=== PATIENT | male | born 1970 | race Two or more races ===

== ENCOUNTER 2024-09-28 05:12 | Inpatient (IN) | payer MEDICAID, OTHER ==
[2024-09-28] VITALS (7 sets, daily range): BP systolic 115; BP diastolic 65; PULSE 84–103; RESP 12–32; O2SAT 93–98
[~2024-09-28] VITALS: Ht 144.8 cm; Wt 59.0 kg
--- NOTE | 2024-09-28 06:46 | ECG ---
[facility] Test Date: 2024-09-28 Test Time: 06:45:06 Pat Name: GAUDENCIO MOSS Department: ED Room: 0205 Gender: M [employer] Head: ARIA : 1970 Requested By: CHELA MARIN Order Number: [id number] Reading MD: Jewel Leong Measurements Intervals [place] Rate: 98 P: 74 PA: 130 QRS: 30 QRSD: 88 T: 55 QT: 348 QTc: 445 Interpretive Statements Sinus rhythm Electronically Signed On 09-30-2024 21:16:55 PDT by Jewel Leong Please click the below link to view image of tracing.
--- NOTE | 2024-09-28 06:54 | ED.PDOC ---
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 Caregiver reports noticing respiratory distress with discoloration to patient's fingertips and heavy amount of phlegm build up but struggles to cough out. Patient resides in [place], [place] at [place] and has been dx with pulmonary issues since childhood in [place] alongside PNA. Patient is not on any home oxygen or has history of asthma or COPD. Upon ED arrival, patient;s SPO2 read in the 80's RA. Caregiver states last PNA dx was about a year ago and is given Ciprofloxacin to treat infection. Caregiver also mentions patient saturates in the 85-90s normally. No other complaints reported. Chief Complaint: Shortness of Breath Time Seen by MD: 06:18 Reviewed notes: Nurses Notes, Medications, Allergies Information Source: Legal Guardian Mode of Arrival: Ambulatory Severity: Moderate Timing: Hours Duration: Since onset History of: None Modifying Factors: Nothing Associated Signs and Symptoms: Cough If cough with SOB: Productive Past Medical History Past Medical History (Other): PNA Surgical History: Appendectomy Family History Family History: Reviewed,noncontributory to illness Social History Smoker: Non-Smoker Alcohol: Denies ETOH Use Drugs: Denies Drug Use Lives In: Home Constitutional: denies: chills, diaphoresis, fatigue, fever, malaise, sweats, weakness, others EENTM: denies: blurred vision, double vision, ear bleeding, ear discharge, ear drainage, ear pain, ear ringing, eye pain, eye redness, hearing loss, mouth pain, mouth swelling, nasal discharge, nose bleeding, nose congestion, nose pain, photophobia, tearing, throat pain, throat swelling, voice changes, others Respiratory: reports: cough, SOB at rest, shortness of breath, SOB with excertion; denies: hemoptysis, orthopnea, stridor, wheezing, others Cardiovascular: denies: chest pain, dizzy spells, diaphoresis, Dyspnea on exertion, edema, irregular heart beat, left arm pain, lightheadedness, palpitations, PND, syncope, others Gastrointestinal: denies: abdomen distended, abdominal pain, blood streaked bowels, constipated, diarrhea, dysphagia, difficulty swallowing, hematemesis, melena, nausea, poor appetite, poor fluid intake, rectal bleeding, rectal pain, vomiting, others Genitourinary: denies: burning, dysuria, flank pain, frequency, hematuria, incontinence, penile discharge, penile sore, pain, testicle pain, testicle swelling, urgency, others Neurological: denies: dizziness, fainting, headache, left sided numbness, left sided weakness, numbness, paresthesia, pre-existing deficit, right sided numbness, right sided weakness, seizure, speech problems, tingling, tremors, weakness, others Musculoskeletal: denies: back pain, gout, joint pain, joint swelling, muscle pain, muscle stiffness, neck pain, others Integumetry: reports: change in color; denies: bruises, change in hair/nails, dryness, laceration, lesions, lumps, rash, wounds, others Allergic/Immunocompromised: denies: Difficulty Healing, Frequent Infections, Hives, Itching, others Hematologic/Lymphatic: denies: anemia, blood clots, easy bleeding, easy bruising, swollen glands, others Endocrine: denies: excessive hunger, excessive sweating, excessive thirst, excessive urination, flushing, intolerance to cold, intolerance to heat, unexplained weight gain, unexplained weight loss, others Psychiatric: denies: anxiety, bipolar disorder, depression, hopeless, panic disorder, schizophrenia, sleepless, suicidal, others All Other Systems: Reviewed and Negative Physical Exam General Appearance: No Apparent Distress, Normal HEENT: Normal ENT Inspection Neck: Normal Inspection Respiratory: Crackles (bilaterally ), Other (tachypneic) Cardiovascular: No Edema, No JVD, No Murmur, No Gallop, Tachycardia Breast Exam: Deferred Gastrointestinal: Non Tender, Normal Bowel Sounds Genitalia: Deferred Pelvic: Deferred Rectal: Deferred Extremities: Normal inspection Neurologic: Alert, washer hand II-XII nml as Tested, No Motor Deficits, Normal Affect, Normal Mood, No Sensory Deficits Cerebellar Function: Unable to Test Reflexes: NOT DONE Skin: Normal Color Lymphatic: NOT DONE Was a procedure done? Was a procedure done?: No Differential Dx Differential Diagnosis: Bronchitis, COPD, Pneumonia, Respiratory Distress, URI X-Ray, Labs, Meds, VS Vital Signs Date Time Temp Pulse Resp B/P (MAP) Pulse Ox O2 Delivery O2 Flow Rate FiO2 09/28/24 06:45 98 09/28/24 06:27 102 23 98 Non-Rebreather 15 N/A 09/28/24 06:25 98.8 102 23 102/52 (69) 98 98.8 09/28/24 05:30 99.2 104 20 100/49 (66) 85 99.2 Lab Test 09/28/24 07:41 09/28/24 06:33 Range/Units Troponin I High Sensitivity 9 9 </=54 ng/L White Blood Count 7.5 4.4-10.8 10^3/uL Red Blood Count 5.37 4.5-5.90 10^6/uL Hemoglobin 16.9 13.5-17.5 g/dL Hematocrit 50.1 41.0-53.0 % Mean Corpuscular Volume 93.3 80.0-100.0 fL Mean Corpuscular Hemoglobin 31.5 28.0-32.0 pg Mean Corpuscular Hemoglobin Concent 33.8 32.0-36.0 g/dL Red Cell Distribution Width 16.4 H 11.8-14.3 % Platelet Count 118 L 140-450 10^3/uL Mean Platelet Volume 8.4 6.9-10.8 fL Neutrophils (%) (Auto) 89.3 H 37.0-80.0 % Lymphocytes (%) (Auto) 5.2 L 10.0-50.0 % Monocytes (%) (Auto) 5.3 0.0-12.0 % Eosinophils (%) (Auto) 0.1 0.0-7.0 % Basophils (%) (Auto) 0.1 0.0-2.0 % Neutrophils # (Auto) 6.7 1.6-8.6 10 ^3/uL Lymphocytes # (Auto) 0.4 0.4-5.4 10 ^3/uL Monocytes # (Auto) 0.4 0-1.3 10 ^3/uL Eosinophils # (Auto) 0 0-0.8 10 ^3/uL Basophils # (Auto) 0 0-0.2 10 ^3/uL Nucleated Red Blood Cells 0.1 % Sodium Level 144 136-145 mmol/L Potassium Level 3.3 L 3.5-5.1 mmol/L Chloride Level 104 98-107 mmol/L Carbon Dioxide Level 27 20-31 mmol/L Anion Gap 13 5-15 Blood Urea Nitrogen 9 9-23 mg/dL Creatinine 1.01 0.700-1.30 mg/dL Glomerular Filtration Rate Calc 88 >90 mL/min BUN/Creatinine Ratio 8.9 L 10.0-20.0 Serum Glucose 137 H 74-106 mg/dL Lactic Acid Level 5.5 *H 0.4-2.0 mmol/L Calcium Level 9.4 8.7-10.4 mg/dL Current Medications Medications (Trade) Dose Ordered Sig/Shailesh Route Start Time Stop Time Status Last Admin Sodium Chloride 1,000 ml @ 1,000 mls/hr Q1H ONCE IV 09/28/24 07:30 09/28/24 08:29 DC 09/28/24 08:15 Cefepime HCl 50 ml @ 50 mls/hr ONCE ONCE IV 09/28/24 07:30 09/28/24 08:29 DC 09/28/24 08:17 EXAM: XR Chest, 1 View CLINICAL INDICATION: Pain TECHNIQUE: Frontal view of the chest. COMPARISON: No relevant prior studies available. FINDINGS: LUNGS AND PLEURAL SPACES: See below. HEART: Cardiomegaly with mild congestion. MEDIASTINUM: Unremarkable. Normal mediastinal contour. BONES/JOINTS: Unremarkable. No acute fracture. IMPRESSION: Cardiomegaly with mild congestion. Time of 1ST Reevaluation: 06:23 Reevaluation 1ST: Unchanged Patient Education/Counseling: Other Family Education/Counseling: Diagnosis, Treatment, Prognosis SEPSIS Sepsis Screen Orders/Vitals/Labs Physician Orders Urinalysis (09/28/24 06:21) Chest Portable (09/28/24 06:21) Blood Culture (09/28/24 06:21) Troponin-I Hs (09/28/24 09:21) Sepsis Reassessment After Flui (09/28/24 07:36) Initiate Sepsis Protocol (09/28/24 ) Sepsis Initial Assessment ONCE (09/28/24 07:36) Vital Signs Date Time Temp Pulse Resp B/P (MAP) Pulse Ox O2 Delivery O2 Flow Rate FiO2 09/28/24 06:45 98 09/28/24 06:27 102 23 98 Non-Rebreather 15 N/A 09/28/24 06:25 98.8 102 23 102/52 (69) 98 98.8 09/28/24 05:30 99.2 104 20 100/49 (66) 85 99.2 Laboratory Tests Test 09/28/24 06:33 Lactic Acid Level 5.5 mmol/L (0.4-2.0) *H White Blood Count 7.5 10^3/uL (4.4-10.8) Medications Medications Dose Ordered Sig/Shailesh Route Start Time Stop Time Status Last Admin Dose Admin Cefepime HCl 50 ml @ 50 mls/hr ONCE ONCE IV 09/28/24 07:30 09/28/24 08:29 DC 09/28/24 08:17 Sodium Chloride 1,000 ml @ 1,000 mls/hr Q1H ONCE IV 09/28/24 07:30 09/28/24 08:29 DC 09/28/24 08:15 Departure 1 Departure Time of Disposition: 08:46 (Patient with a worsening shortness of breath requiring oxygen. We will admit patient for further workup and expert consultation) Impression: Primary Impression: Acute hypoxic respiratory failure Additional Impression: Shortness of breath Disposition: ADMITTED INPATIENT Admit to: Med Surg Condition: Guarded Critical Care Note Critical Care Time?: Yes Critical care comment: Shortness of breath Authorized and Performed by: Chela Lugo MD Total critical care time: Approximately 43 minutes Due to a high probability of clinically significant, life threatening deterioration, the patient required my highest level of preparedness to inte rvene emergently and I personally spent this critical care time directly and personally managing the patient. This critical care time included obtaining a history; examining the patient; pulse oximetry; ordering and review of studies; arranging urgent treatment with development of a management plan; evaluation of patient's response to treatment; frequent reassessment; and, discussions with other providers. This critical care time was performed to assess and manage the high probability of imminent, life-threatening deterioration that could result in multi-organ failure. It was exclusive of separately billable procedures and treating other patients and teaching time. Please see my other sections and the rest of the note for further information on patient assessment and treatment. Stability Stability form required: No Heart Score Heart Score: Heart Score Response (Comments) Value History N/A 0 EKG N/A 0 Age N/A 0 Risk Factors N/A 0 Troponin N/A 0 Total 0 I personally scribed for CHELA LUGO MD ([email or web address]) on 09/28/24 at 06:54. El ectronically submitted by Padmini Ham ([facility]). I personally scribed for CHELA LUGO MD ([email or web address]) on 09/28/24 at 08:08. Elec tronically submitted by Padmini Ham ([facility]). CHELA LUGO MD Sep 28, 2024 06:54
[2024-09-28 06:56] LABS: Basophils # (auto) 0 10 ^3/uL (0-0.2); Basophils % (auto) 0.1 % (0.0-2.0); Eosinophils # (auto) 0 10 ^3/uL (0-0.8); Eosinophils % (auto) 0.1 % (0.0-7.0); Hematocrit 50.1 % (41.0-53.0); Hemoglobin 16.9 g/dL (13.5-17.5); Lymphocytes # (auto) 0.4 10 ^3/uL (0.4-5.4); Lymphocytes % (auto) 5.2 % (10.0-50.0); Mean Corpuscular Hemoglobin 31.5 pg (28.0-32.0); Mean Corpuscular Hgb Conc. 33.8 g/dL (32.0-36.0); Mean Corpuscular Volume 93.3 fL (80.0-100.0); Monocytes # (auto) 0.4 10 ^3/uL (0-1.3); Monocytes % (auto) 5.3 % (0.0-12.0); Neutrophils # (auto) 6.7 10 ^3/uL (1.6-8.6); Neutrophils % (auto) 89.3 % (37.0-80.0); Nucleated Red Blood Cells % 0.1 %; Platelet Count (auto) 118 10^3/uL (140-450); Red Blood Cells 5.37 10^6/uL (4.5-5.90); Red Cell Distribution Width 16.4 % (11.8-14.3); White Blood Cell 7.5 10^3/uL (4.4-10.8)
[2024-09-28 07:06] LABS: Anion Gap 13 (5-15); Carbon Dioxide 27 mmol/L (20-31); Chloride 104 mmol/L (98-107); Sodium 144 mmol/L (136-145)
[2024-09-28 07:07] LABS: Calcium 9.4 mg/dL (8.7-10.4)
[2024-09-28 07:12] LABS: BUN/Creatinine Ratio 8.9 (10.0-20.0); Blood Urea Nitrogen 9 mg/dL (9-23)
[2024-09-28 07:13] LABS: Glucose 137 mg/dL (74-106); Potassium 3.3 mmol/L (3.5-5.1)
[2024-09-28 07:19] LABS: Lactic Acid w/Reflex 5.5 mmol/L (0.4-2.0)
--- NOTE | 2024-09-28 08:04 | DVH ---
EXAM: XR Chest, 1 View CLINICAL INDICATION: Pain TECHNIQUE: Frontal view of the chest. COMPARISON: No relevant prior studies available. FINDINGS: LUNGS AND PLEURAL SPACES: See below. HEART: Cardiomegaly with mild congestion. MEDIASTINUM: Unremarkable. Normal mediastinal contour. BONES/JOINTS: Unremarkable. No acute fracture. IMPRESSION: Cardiomegaly with mild congestion.
[2024-09-28] MEDS: SODIUM CHLORIDE 0.9% 1,000 ML IV ONE ×3 (08:15→13:08)
[2024-09-28] MEDS: CEFEPIME 2GM/50ML NS 50 ML IV ONE (08:17)
[2024-09-28] MEDS: VANCOMYCIN 1GM/200ML PM 200 ML IV ONE (10:00)
[2024-09-28] MEDS ORDERED: ONDANSETRON HCL 4 MG/2 ML VIAL IV PRN (10:30)
--- NOTE | 2024-09-28 10:49 | DVHHP2 ---
History of Present Illness Reason for Visit: Shortness of breath History of Present Illness Smith Watson is a 54-year-old male with a past medical history of Down's syndrome and non-verbal at baseline, who was brought to the hospital for shortness of breath. Per his sister, he lives in [place], he is only visiting right now. At baseline is oxygenation is around 85%, and he does not use home oxygen. He does not have any chronic conditions that require daily medications. He has had pneumonia in the past. She states she brought him in because he was having increased work of breathing, and cough with sputum. She states she can hear he has a wet cough, but he has difficulty coughing it up. In the ER kennedy you was placed on a non rebreather mask at 15L. O2 saturations were 96%, wean down oxygen as tolerated. 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, Down's syndrome ) Past Surgical History: Appendectomy Smoke: No ALCOHOL: none Drugs: None Lives: with Family Domestic Violence: Neg Review of Systems Constitutional: No: Fever, Chills, Sweats, Weakness, Malaise, Other Eyes: No: Pain, Vision change, Conjunctivae inflammation, Eyelid inflammation, Other, Redness ENT: No: Ear pain, Ear discharge, Nose pain, Nose discharge, Nose congestion, Mouth pain, Mouth swelling, Throat pain, Throat swelling, Other Respiratory: Cough, Shortness of breath, SOB with excertion, Wheezing, Sputum; No: Dry, Hemoptysis, Pleuritic Pain, Wheezing, Other Cardiovascular: No: Chest Pain, Palpitations, Orthopnea, Paroxysmal Noc. Dyspnea, Edema, Lt Headedness, Other Gastrointestinal: No: Nausea, Vomiting, Abdominal Pain, Diarrhea, Constipation, Melena, Hematochezia, Other Genitourinary: No Dysuria, No Frequency, No Incontinence, No Hematuria, No Retention, No Other Musculoskeletal: No: other, neck pain, shoulder pain, arm pain, back pain, hand pain, leg pain, foot pain Skin: No: Rash, Lesions, Jaundice, Bruising, Other Neurological: No: Weakness, Numbness, Incoordination, Change in speech, Confusi on, Seizures, Other Allergies: Coded Allergies: NO KNOWN ALLERGIES (Unverified , 09/28/24) Exam Vital Signs Vital Signs Date Time Temp Pulse Resp B/P (MAP) Pulse Ox O2 Delivery O2 Flow Rate FiO2 09/28/24 09:04 89 09/28/24 08:00 12 95 Non-Rebreather 15 N/A 09/28/24 08:00 98.3 101/78 (86) 98.3 General Appearance: Alert, Cooperative, moderate distress HEENT: Atraumatic, PERRLA Respiratory: Other (bilateral wheezing and rales) Cardiovascular: Regular rate, Normal S1, Normal S2 Abdominal: Normal bowel sounds, Soft, No tenderness Extremities: No clubbing, No cyanosis, No edema, Normal pulses Skin: No rashes, No breakdown, No significant lesion Neuro: Normal gait, Normal speech, Strength at 5/5 X4 ext Psych/Mental Status: Other (non verbal at baseline) Labs/Xrays Labs Test 09/28/24 09:27 09/28/24 08:45 09/28/24 06:33 Range/Units Troponin I High Sensitivity 7 </=54 ng/L Lactic Acid Level 2.9 *H 0.4-2.0 mmol/L White Blood Count 7.5 4.4-10.8 10^3/uL Red Blood Count 5.37 4.5-5.90 10^6/uL Hemoglobin 16.9 13.5-17.5 g/dL Hematocrit 50.1 41.0-53.0 % Mean Corpuscular Volume 93.3 80.0-100.0 fL Mean Corpuscular Hemoglobin 31.5 28.0-32.0 pg Mean Corpuscular Hemoglobin Concent 33.8 32.0-36.0 g/dL Red Cell Distribution Width 16.4 H 11.8-14.3 % Platelet Count 118 L 140-450 10^3/uL Mean Platelet Volume 8.4 6.9-10.8 fL Neutrophils (%) (Auto) 89.3 H 37.0-80.0 % Lymphocytes (%) (Auto) 5.2 L 10.0-50.0 % Monocytes (%) (Auto) 5.3 0.0-12.0 % Eosinophils (%) (Auto) 0.1 0.0-7.0 % Basophils (%) (Auto) 0.1 0.0-2.0 % Neutrophils # (Auto) 6.7 1.6-8.6 10 ^3/uL Lymphocytes # (Auto) 0.4 0.4-5.4 10 ^3/uL Monocytes # (Auto) 0.4 0-1.3 10 ^3/uL Eosinophils # (Auto) 0 0-0.8 10 ^3/uL Basophils # (Auto) 0 0-0.2 10 ^3/uL Nucleated Red Blood Cells 0.1 % Sodium Level 144 136-145 mmol/L Potassium Level 3.3 L 3.5-5.1 mmol/L Chloride Level 104 98-107 mmol/L Carbon Dioxide Level 27 20-31 mmol/L Anion Gap 13 5-15 Blood Urea Nitrogen 9 9-23 mg/dL Creatinine 1.01 0.700-1.30 mg/dL Glomerular Filtration Rate Calc 88 >90 mL/min BUN/Creatinine Ratio 8.9 L 10.0-20.0 Serum Glucose 137 H 74-106 mg/dL Calcium Level 9.4 8.7-10.4 mg/dL EXAM: XR Chest, 1 View FINDINGS: LUNGS AND PLEURAL SPACES: See below. HEART: Cardiomegaly with mild congestion. MEDIASTINUM: Unremarkable. Normal mediastinal contour. BONES/JOINTS: Unremarkable. No acute fracture. IMPRESSION: Cardiomegaly with mild congestion. Assessment/Plan Assessment/Plan Assessment: Acute hypoxic respiratory failure, Possible Pneumonia, Sepsis, Cardiomegaly, Plan: Admit to Med-Surg, IV antibiotics, IV hydration, IV steroids, Fluid resuscitation, Sputum cultures, Blood cultures, Supplemental oxygen as needed, Breathing treatments, Plan discussed with: Patient, Other (Sister) Date of Service: Sep 28, 2024 Billing Provider: PATRICK CHEN Common Visit Codes: [id number] INP/OBS CARE (MOD) PATRICK CHEN Sep 28, 2024 10:49
[2024-09-28] MEDS: IPRATROPIUM BROM 0.5 MG/2.5ML INH SOL NEB SCH (11:09)
[2024-09-28] MEDS: IPRATROPIUM BROM 0.5 MG/2.5ML INH SOL ONE (11:10)
[2024-09-28] MEDS: ALBUTEROL SULF 2.5 MG/0.5ML(0.5%) NEB SOLN ONE (11:10)
[2024-09-28] MEDS: ALBUTEROL SULF 2.5 MG/0.5ML(0.5%) NEB SOLN NEB SCH (11:10)
[2024-09-28] MEDS: cefTRIAXone 1GM/50ML D5W 50 ML IV SCH (11:24)
[2024-09-28] MEDS: methylPREDNISolone SOD SUCC 40 MG/ML VL IV SCH (11:25)
[2024-09-28 11:30] LABS: Urine Bacteria None Seen /hpf (None Seen)
[2024-09-28 11:41] LABS: Urine Blood Negative /uL (Negative); Urine Clarity Clear (Clear); Urine Color Yellow (Yellow); Urine Mucus FEW (None Seen); Urine Protein, UAD 1+ (Negative); Urine Specific Gravity 1.023 (1.001-1.035); Urine Squamous Epithelial Cell None Seen /hpf (<5); Urine Urobilinogen Normal (Negative); Urine WBC < 1 /HPF (0-3); Urine pH 5.5 (5.0-9.0)
[2024-09-28] MEDS: AZITHROMYCIN 500MG/ 250ML 250 ML IV SCH (12:04)
[2024-09-28] MEDS: LORazepam 2MG/ML-1ML VIAL IV ONE (13:42)
[2024-09-29] VITALS (9 sets, daily range): BP systolic 113–128; BP diastolic 55–62; PULSE 82–98; RESP 16–24; TEMP 97.5–97.6; O2SAT 10–98
[2024-09-29] MEDS: LORazepam 2MG/ML-1ML VIAL IV ONE (02:30)
[2024-09-29 06:38] LABS: Basophils # (auto) 0 10 ^3/uL (0-0.2); Eosinophils # (auto) 0 10 ^3/uL (0-0.8); Hematocrit 45.7 % (41.0-53.0); Hemoglobin 15.5 g/dL (13.5-17.5); Lymphocytes # (auto) 0.3 10 ^3/uL (0.4-5.4); Lymphocytes % (auto) 6.1 % (10.0-50.0); Mean Corpuscular Hemoglobin 31.7 pg (28.0-32.0); Mean Corpuscular Hgb Conc. 33.9 g/dL (32.0-36.0); Mean Corpuscular Volume 93.3 fL (80.0-100.0); Monocytes # (auto) 0.2 10 ^3/uL (0-1.3); Monocytes % (auto) 4.8 % (0.0-12.0); Neutrophils # (auto) 4.6 10 ^3/uL (1.6-8.6); Neutrophils % (auto) 89.1 % (37.0-80.0); Nucleated Red Blood Cells % 0.1 %; Platelet Count (auto) 139 10^3/uL (140-450); Red Cell Distribution Width 16.6 % (11.8-14.3); White Blood Cell 5.2 10^3/uL (4.4-10.8)
[2024-09-29 06:46] LABS: Albumin 3.6 g/dL (3.2-4.8); Alkaline Phosphatase 48 U/L (46-116); Anion Gap 10 (5-15); BUN/Creatinine Ratio 13.7 (10.0-20.0); Blood Urea Nitrogen 10 mg/dL (9-23); Calcium 9.5 mg/dL (8.7-10.4); Carbon Dioxide 28 mmol/L (20-31); Potassium 4.3 mmol/L (3.5-5.1); Total Protein 6.7 g/dL (5.7-8.2)
[2024-09-29 06:47] LABS: Bilirubin, Total 0.5 mg/dL (0.2-1.0)
[2024-09-29 06:50] LABS: Alanine Aminotransferase 69 U/L (7-40); Aspartate Aminotransferase 62 U/L (<34); Chloride 107 mmol/L (98-107); Glucose 116 mg/dL (74-106); Sodium 145 mmol/L (136-145)
--- NOTE | 2024-09-29 15:56 | DVHPN2 ---
Subjective Patient unable to communicate. Reviewed: Care Plan, H&P, Labs, Medications Changes from previous H/P or p: No Changes General: Per HPI Eyes: No Pain, No Vision change, No Conjunctivae inflammation, No Eyelid inflammation, No Other, No Redness ENT: No Ear pain, No Ear discharge, No Nose pain, No Nose discharge, No Nose congestion, No Mouth pain, No Mouth swelling, No Throat pain, No Throat swelling, No Other Cardiovascular: No Chest Pain, No Palpitations, No Orthopnea, No Paroxysmal Noc. Dyspnea, No Edema, No Lt Headedness, No Other Respiratory: Cough; No Dry; Shortness of breath, SOB with excertion, Wheezing; No Hemoptysis, No Pleuritic Pain; Sputum; No Other Gastrointestinal: No Nausea, No Vomiting, No Abdominal Pain, No Diarrhea, No Constipation, No Melena, No Hematochezia, No Other Genitourinary: No Dysuria, No Frequency, No Incontinence, No Hematuria, No Retention, No Other Musculoskeletal: No other, No neck pain, No shoulder pain, No arm pain, No back pain, No hand pain, No leg pain, No foot pain Skin: No Rash, No Lesions, No Jaundice, No Bruising, No Other Objective Vitals Vital Signs Date Time Temp Pulse Resp B/P (MAP) Pulse Ox O2 Delivery O2 Flow Rate FiO2 09/29/24 14:01 89 23 101/62 (75) 90 09/29/24 11:31 Simple Mask* 8 60 09/29/24 07:49 97.7 97.7 Intake/Output Intake and Output 09/29/24 07:00 Intake Total 2850 ml Balance 2850 ml Intake IV Total 2850 ml General Appearance: Alert, Cooperative, No acute distress HEENT: Atraumatic, PERRLA Lungs: Normal air movement, Other (Wheezing, 6 L via Oxymizer) Cardiovascular: Normal S1, Normal S2 Abdomen: Normal bowel sounds, Soft, No tenderness, No hepatospenomegaly Musculoskeletal: Normal sensory function, Normal motor function Skin: Dry, Intact Psych/Mental Status: Mental status NL, Mood NL Medications Current Medications Medications Dose Ordered Sig/Shailesh Route Start Time Stop Time Status Last Admin Dose Admin Ondansetron HCl 4 mg Q4HP PRN IV 09/28/24 10:30 Docusate Sodium 100 mg BIDPRN PRN PO 09/28/24 10:30 Acetaminophen 650 mg Q6HP PRN PO 09/28/24 10:30 Ceftriaxone Sodium 50 ml @ 100 mls/hr DAILY@09 IV 09/28/24 11:00 09/29/24 09:04 100 MLS/HR Azithromycin 250 ml @ 125 mls/hr DAILY IV 09/28/24 11:02 09/29/24 09:45 125 MLS/HR Ipratropium [place] 0.5 mg Q6HWA NEB 09/28/24 12:00 09/29/24 11:31 0.5 MG Albuterol 2.5 mg Q6HWA NEB 09/28/24 12:00 09/29/24 11:31 2.5 MG Methylprednisolone Sodium Succinate 40 mg BID IV 09/28/24 10:59 09/29/24 09:45 40 MG Laboratory Results Laboratory Tests 09/29/24 05:34 Chemistry Test 09/29/24 05:34 Albumin 3.6 g/dL (3.2-4.8) Calcium Level 9.5 mg/dL (8.7-10.4) Total Protein 6.7 g/dL (5.7-8.2) LFT Test 09/29/24 05:34 Alanine Aminotransferase (ALT) 69 U/L (7-40) H Alkaline Phosphatase 48 U/L (46-116) Aspartate Amino Transferase (AST) 62 U/L (<34) H Total Bilirubin 0.5 mg/dL (0.2-1.0) Urinalysis Test 09/28/24 11:19 Urine Color Yellow (Yellow) Urine Clarity Clear (Clear) Urine pH 5.5 (5.0-9.0) Urine Specific [place] 1.023 (1.001-1.035) Urine Protein 1+ (Negative) H Urine Ketones Negative (Negative) Urine Blood Negative /uL (Negative) Urine Nitrite Negative (Negative) Urine Bilirubin Negative (Negative) Urine Urobilinogen Normal mg/dL (Negative) Urine Leukocyte Esterase Negative /uL (Negative) Urine RBC <1 /hpf (0 - 3) Urine Microscopic WBC < 1 /HPF (0-3) Urine Squamous Epithelial Cells None seen /hpf (<5) Urine Bacteria None seen /hpf (None Seen) Urine Granular Casts Few /lpf (0) Urine Mucus Few (None Seen) Urine Glucose Normal mg/dL (Normal) Microbiology Microbiology Date/Time Source Procedure Growth Status 09/28/24 06:33 Blood Blood Culture - Preliminary NO GROWTH AFTER 24 HOURS OF INCUBATION. Resulted Labs and/or images reviewed: Labs reviewed by me, Image(s) reviewed by me Assessment/Plan Assessment/Plan Impression: -acute hypoxic respiratory failure -probable bilateral pneumonia, Gram-positive/Gram-negative etiology -down syndrome -obesity -rule out acute systolic heart failure Plan: -CT scan of chest -if pulmonary vascular congestion noted, echocardiogram will be ordered -continue empiric antibiotic therapy -bronchodilators -O2 supplementation to keep saturation greater than 92% -repeat labs in a.m. Total time spent with patient discussing and formulating plan of care: 35 minutes. This medical document was created using an electronic medical record system with [employer] dictation system. Although this document has been carefully reviewed, there may still be some phonetic and typographical errors. These areas are purely typographical due to imperfections of the software programs, and do not reflect any compromise in the patient's medical care. Plan discussed with: Patient, Other (RN) My Orders Orders - ANJALI ERIC NP Procedure Category Date Status Time Regular Diet DIET 09/29/24 Verified Dinner Chest Without Contrast CT 09/29/24 Verified 15:50 Abg W/ Co-Ox RT 09/29/24 Verified 15:50 Basic Metabolic Panel LAB 09/30/24 Verified 04:00 Complete Blood Count LAB 09/30/24 Verified 04:00 Date of Service: Sep 29, 2024 Billing Provider: ANJALI ERIC NP Common Visit Codes: [id number] INP/OBS CARE(HIGH) ANJALI ERIC NP Sep 29, 2024 15:56
[2024-09-29 16:05] LABS: Base Excess 3.6 mmol/L (-2.0-3.0)
--- NOTE | 2024-09-29 16:53 | DVH ---
Indication: PNa, severe hypoxia Technique: CT axial images of the chest are obtained without contrast. Coronal and sagittal reformats were obtained. Radiation Dose Information: CTDI volume is 10.87 mGy. Dose-length product is 395.87 mGy*cm Comparison: None FINDINGS: Trachea patent. No pneumothorax. Bilateral atelectasis . Right upper middle, lower lobe airspace con solidation more pronounced within the right lower lobe /tree-in-bud nodularity. Left upper and lower lobe consolidation/tree-in-bud nodularity. 7 mm right lower lobe pulmonary nodule. The heart size is at the upper limits of normal. Main pulmonary artery measures 3.7 cm. Left paratrac heal lymph node measuring 1.4 cm. No supraclavicular or axillary lymphadenopathy. Hepatic steatosis. Liver capsule nodular morphology could represent cirrhosis. Aypf-ej-wsxpmals thoracic degenerative disc disease. IMPRESSION: Bilateral pulmonary airspace consolidation/ tree-in-bud nodularity which could be secondary to infect ion/atypical infection, bronchiolitis. Follow-up to resolution. Enlargement of the main pulmonary artery measuring 3.7 cm. 7 mm right lower lobe pulmonary nodule which could be secondary to underlying infection. Recommend f ollow-up chest CT in 3 months to ensure resolution. Mediastinal lymphadenopathy. Hepatic steatosis.
[2024-09-30] VITALS (15 sets, daily range): BP systolic 100–135; BP diastolic 49–68; PULSE 65–94; RESP 18–97; TEMP 97.6–97.9; O2SAT 94–99
[2024-09-30 07:07] LABS: Basophils # (auto) 0 10 ^3/uL (0-0.2); Basophils % (auto) 0.1 % (0.0-2.0); Eosinophils # (auto) 0 10 ^3/uL (0-0.8); Hematocrit 49.1 % (41.0-53.0); Hemoglobin 16.4 g/dL (13.5-17.5); Lymphocytes # (auto) 0.3 10 ^3/uL (0.4-5.4); Lymphocytes % (auto) 5.3 % (10.0-50.0); Mean Corpuscular Hemoglobin 31.4 pg (28.0-32.0); Mean Corpuscular Hgb Conc. 33.5 g/dL (32.0-36.0); Mean Corpuscular Volume 93.8 fL (80.0-100.0); Monocytes # (auto) 0.3 10 ^3/uL (0-1.3); Monocytes % (auto) 4.6 % (0.0-12.0); Neutrophils # (auto) 5.2 10 ^3/uL (1.6-8.6); Nucleated Red Blood Cells % 0.1 %; Platelet Count (auto) 175 10^3/uL (140-450); Red Blood Cells 5.24 10^6/uL (4.5-5.90); Red Cell Distribution Width 15.8 % (11.8-14.3); White Blood Cell 5.7 10^3/uL (4.4-10.8)
[2024-09-30 07:09] LABS: Chloride 103 mmol/L (98-107); Sodium 143 mmol/L (136-145)
[2024-09-30 07:10] LABS: Anion Gap 7 (5-15)
[2024-09-30 07:11] LABS: Calcium 9.6 mg/dL (8.7-10.4)
[2024-09-30 07:16] LABS: BUN/Creatinine Ratio 20.6 (10.0-20.0); Blood Urea Nitrogen 14 mg/dL (9-23)
[2024-09-30 07:20] LABS: Carbon Dioxide 33 mmol/L (20-31); Glucose 131 mg/dL (74-106)
[2024-09-30] MEDS: SODIUM CHLORIDE 0.9% 1,000 ML IV SCH (12:00)
--- NOTE | 2024-09-30 12:19 | DVHPN2 ---
Subjective Patient unable to communicate. Reviewed: Care Plan, H&P, Labs, Medications Changes from previous H/P or p: No Changes General: Per HPI Eyes: No Pain, No Vision change, No Conjunctivae inflammation, No Eyelid inflammation, No Other, No Redness ENT: No Ear pain, No Ear discharge, No Nose pain, No Nose discharge, No Nose congestion, No Mouth pain, No Mouth swelling, No Throat pain, No Throat swelling, No Other Cardiovascular: No Chest Pain, No Palpitations, No Orthopnea, No Paroxysmal Noc. Dyspnea, No Edema, No Lt Headedness, No Other Respiratory: Cough; No Dry; Shortness of breath, SOB with excertion, Wheezing; No Hemoptysis, No Pleuritic Pain; Sputum; No Other Gastrointestinal: No Nausea, No Vomiting, No Abdominal Pain, No Diarrhea, No Constipation, No Melena, No Hematochezia, No Other Genitourinary: No Dysuria, No Frequency, No Incontinence, No Hematuria, No Retention, No Other Musculoskeletal: No other, No neck pain, No shoulder pain, No arm pain, No back pain, No hand pain, No leg pain, No foot pain Skin: No Rash, No Lesions, No Jaundice, No Bruising, No Other Objective Vitals Vital Signs Date Time Temp Pulse Resp B/P (MAP) Pulse Ox O2 Delivery O2 Flow Rate FiO2 09/30/24 11:32 66 18 99 09/30/24 11:19 Simple Mask* 6 50 09/30/24 09:00 97.8 100/51 (67) 97.8 Intake/Output Intake and Output 09/30/24 06:59 Intake Total 590 ml Output Total 300 ml Balance 290 ml Intake Oral 240 ml IV Total 350 ml Output Urine Total 300 ml # Voids 1 # Bowel Movements 1 General Appearance: Alert, Cooperative, No acute distress HEENT: Atraumatic, PERRLA Lungs: Normal air movement, Other (Wheezing, 6 L via Oxymizer) Cardiovascular: Normal S1, Normal S2 Abdomen: Normal bowel sounds, Soft, No tenderness, No hepatospenomegaly Musculoskeletal: Normal sensory function, Normal motor function Skin: Dry, Intact Psych/Mental Status: Mental status NL, Mood NL Medications Current Medications Medications Dose Ordered Sig/Shailesh Route Start Time Stop Time Status Last Admin Dose Admin Ondansetron HCl 4 mg Q4HP PRN IV 09/28/24 10:30 Docusate Sodium 100 mg BIDPRN PRN PO 09/28/24 10:30 Acetaminophen 650 mg Q6HP PRN PO 09/28/24 10:30 Ceftriaxone Sodium 50 ml @ 100 mls/hr DAILY@09 IV 09/28/24 11:00 09/30/24 09:00 100 MLS/HR Azithromycin 250 ml @ 125 mls/hr DAILY IV 09/28/24 11:02 09/30/24 10:00 125 MLS/HR Ipratropium [place] 0.5 mg Q6HWA NEB 09/28/24 12:00 09/30/24 11:19 0.5 MG Albuterol 2.5 mg Q6HWA NEB 09/28/24 12:00 09/30/24 11:19 2.5 MG Sodium Chloride 1,000 ml @ 75 mls/hr [id number] IV 09/30/24 12:00 UNV Laboratory Results Laboratory Tests 09/30/24 06:35 Chemistry Test 09/30/24 06:35 Calcium Level 9.6 mg/dL (8.7-10.4) Urinalysis Test 09/28/24 11:19 Urine Color Yellow (Yellow) Urine Clarity Clear (Clear) Urine pH 5.5 (5.0-9.0) Urine Specific [place] 1.023 (1.001-1.035) Urine Protein 1+ (Negative) H Urine Ketones Negative (Negative) Urine Blood Negative /uL (Negative) Urine Nitrite Negative (Negative) Urine Bilirubin Negative (Negative) Urine Urobilinogen Normal mg/dL (Negative) Urine Leukocyte Esterase Negative /uL (Negative) Urine RBC <1 /hpf (0 - 3) Urine Microscopic WBC < 1 /HPF (0-3) Urine Squamous Epithelial Cells None seen /hpf (<5) Urine Bacteria None seen /hpf (None Seen) Urine Granular Casts Few /lpf (0) Urine Mucus Few (None Seen) Urine Glucose Normal mg/dL (Normal) Blood Gas Results Test 09/29/24 15:59 Arterial Blood pH 7.372 (7.350-7.450) FiO2 % 47.0 Microbiology Microbiology Date/Time Source Procedure Growth Status 09/28/24 06:33 Blood Blood Culture - Preliminary NO GROWTH AFTER 48 HOURS OF INCUBATION. Resulted Labs and/or images reviewed: Labs reviewed by me, Image(s) reviewed by me Assessment/Plan Assessment/Plan Impression: -acute hypoxic respiratory failure -probable bilateral pneumonia, Gram-positive/Gram-negative etiology -down syndrome -obesity -rule out acute systolic heart failure Plan: -no events overnight. CT scan of the chest reviewed. ABG reviewed. Titrate off of simple mask. Questionable hematuria as reported by patient's family. UA reviewed with no blood noted. -check PSA -continue empiric antibiotic therapy -bronchodilators -O2 supplementation to keep saturation greater than 92% -repeat labs in a.m. Total time spent with patient discussing and formulating plan of care: 35 minutes. This medical document was created using an electronic medical record system with [employer] dictation system. Although this document has been carefully reviewed, there may still be some phonetic and typographical errors. These areas are purely typographical due to imperfections of the software programs, and do not reflect any compromise in the patient's medical care. Plan discussed with: Patient, Other (RN) My Orders Orders - ANJALI ERIC NP Procedure Category Date Status Time Regular Diet DIET 09/29/24 Transmitted Dinner Chest Without Contrast CT 09/29/24 Resulted 15:50 Abg W/ Co-Ox RT 09/29/24 Logged 15:50 Sodium Chloride 0.9% PHA 09/30/24 Logged 12:00 Date of Service: Sep 30, 2024 Billing Provider: ANJALI ERIC NP Common Visit Codes: [id number] INP/OBS CARE(HIGH) ANJALI ERIC NP Sep 30, 2024 12:19
[2024-10-01] VITALS (16 sets, daily range): BP systolic 110–160; BP diastolic 50–69; PULSE 62–100; RESP 16–20; TEMP 97.5–98.4; O2SAT 94–100
[2024-10-01 07:44] LABS: Basophils # (auto) 0 10 ^3/uL (0-0.2); Eosinophils # (auto) 0 10 ^3/uL (0-0.8); Hematocrit 49.8 % (41.0-53.0); Hemoglobin 16.9 g/dL (13.5-17.5); Lymphocytes # (auto) 0.5 10 ^3/uL (0.4-5.4); Lymphocytes % (auto) 5.8 % (10.0-50.0); Mean Corpuscular Hemoglobin 31.7 pg (28.0-32.0); Mean Corpuscular Volume 93.2 fL (80.0-100.0); Monocytes # (auto) 0.7 10 ^3/uL (0-1.3); Monocytes % (auto) 8.8 % (0.0-12.0); Neutrophils # (auto) 7.2 10 ^3/uL (1.6-8.6); Neutrophils % (auto) 85.4 % (37.0-80.0); Platelet Count (auto) 201 10^3/uL (140-450); Red Blood Cells 5.34 10^6/uL (4.5-5.90); White Blood Cell 8.4 10^3/uL (4.4-10.8)
[2024-10-01 08:10] LABS: Albumin 3.5 g/dL (3.2-4.8); Anion Gap 8 (5-15); Aspartate Aminotransferase 31 U/L (<34); BUN/Creatinine Ratio 16.7 (10.0-20.0); Bilirubin, Total 0.5 mg/dL (0.2-1.0); Blood Urea Nitrogen 12 mg/dL (9-23); Calcium 9.3 mg/dL (8.7-10.4); Carbon Dioxide 30 mmol/L (20-31); Chloride 105 mmol/L (98-107); Potassium 3.6 mmol/L (3.5-5.1); Sodium 143 mmol/L (136-145); Total Protein 6.5 g/dL (5.7-8.2)
[2024-10-01 08:27] LABS: Alanine Aminotransferase 47 U/L (7-40); Alkaline Phosphatase 43 U/L (46-116); Glucose 115 mg/dL (74-106)
--- NOTE | 2024-10-01 11:24 | DVHPN2 ---
Subjective Patient unable to communicate. Reviewed: Care Plan, H&P, Labs, Medications Changes from previous H/P or p: No Changes General: Per HPI Eyes: No Pain, No Vision change, No Conjunctivae inflammation, No Eyelid inflammation, No Other, No Redness ENT: No Ear pain, No Ear discharge, No Nose pain, No Nose discharge, No Nose congestion, No Mouth pain, No Mouth swelling, No Throat pain, No Throat swelling, No Other Cardiovascular: No Chest Pain, No Palpitations, No Orthopnea, No Paroxysmal Noc. Dyspnea, No Edema, No Lt Headedness, No Other Respiratory: Cough; No Dry; Shortness of breath, SOB with excertion, Wheezing; No Hemoptysis, No Pleuritic Pain; Sputum; No Other Gastrointestinal: No Nausea, No Vomiting, No Abdominal Pain, No Diarrhea, No Constipation, No Melena, No Hematochezia, No Other Genitourinary: No Dysuria, No Frequency, No Incontinence, No Hematuria, No Retention, No Other Musculoskeletal: No other, No neck pain, No shoulder pain, No arm pain, No back pain, No hand pain, No leg pain, No foot pain Skin: No Rash, No Lesions, No Jaundice, No Bruising, No Other Objective Vitals Vital Signs Date Time Temp Pulse Resp B/P (MAP) Pulse Ox O2 Delivery O2 Flow Rate FiO2 10/01/24 08:31 98.4 72 20 125/66 (85) 100 98.4 10/01/24 08:00 Nasal Cannula* 4 N/A Simple Mask* Intake/Output Intake and Output 10/01/24 07:00 Intake Total 2940 ml Balance 2940 ml Intake Oral 2640 ml IV Total 300 ml # Voids 6 # Bowel Movements 3 General Appearance: Alert, Cooperative, No acute distress HEENT: Atraumatic, PERRLA Lungs: Normal air movement, Other (Wheezing, 6 L via Oxymizer) Cardiovascular: Normal S1, Normal S2 Abdomen: Normal bowel sounds, Soft, No tenderness, No hepatospenomegaly Musculoskeletal: Normal sensory function, Normal motor function Skin: Dry, Intact Psych/Mental Status: Mental status NL, Mood NL Medications Current Medications Medications Dose Ordered Sig/Shailesh Route Start Time Stop Time Status Last Admin Dose Admin Ondansetron HCl 4 mg Q4HP PRN IV 09/28/24 10:30 Docusate Sodium 100 mg BIDPRN PRN PO 09/28/24 10:30 Acetaminophen 650 mg Q6HP PRN PO 09/28/24 10:30 Ceftriaxone Sodium 50 ml @ 100 mls/hr DAILY@09 IV 09/28/24 11:00 10/01/24 09:15 100 MLS/HR Azithromycin 250 ml @ 125 mls/hr DAILY IV 09/28/24 11:02 10/01/24 10:30 125 MLS/HR Ipratropium [place] 0.5 mg Q6HWA NEB 09/28/24 12:00 10/01/24 07:40 0.5 MG Albuterol 2.5 mg Q6HWA NEB 09/28/24 12:00 10/01/24 07:39 2.5 MG Sodium Chloride 1,000 ml @ 75 mls/hr [id number] IV 09/30/24 12:00 10/01/24 01:25 75 MLS/HR Laboratory Results Laboratory Tests 10/01/24 07:27 Chemistry Test 10/01/24 07:27 Albumin 3.5 g/dL (3.2-4.8) Calcium Level 9.3 mg/dL (8.7-10.4) Total Protein 6.5 g/dL (5.7-8.2) LFT Test 10/01/24 07:27 Alanine Aminotransferase (ALT) 47 U/L (7-40) H Alkaline Phosphatase 43 U/L (46-116) L Aspartate Amino Transferase (AST) 31 U/L (<34) Total Bilirubin 0.5 mg/dL (0.2-1.0) Urinalysis Test 09/28/24 11:19 Urine Color Yellow (Yellow) Urine Clarity Clear (Clear) Urine pH 5.5 (5.0-9.0) Urine Specific [place] 1.023 (1.001-1.035) Urine Protein 1+ (Negative) H Urine Ketones Negative (Negative) Urine Blood Negative /uL (Negative) Urine Nitrite Negative (Negative) Urine Bilirubin Negative (Negative) Urine Urobilinogen Normal mg/dL (Negative) Urine Leukocyte Esterase Negative /uL (Negative) Urine RBC <1 /hpf (0 - 3) Urine Microscopic WBC < 1 /HPF (0-3) Urine Squamous Epithelial Cells None seen /hpf (<5) Urine Bacteria None seen /hpf (None Seen) Urine Granular Casts Few /lpf (0) Urine Mucus Few (None Seen) Urine Glucose Normal mg/dL (Normal) Microbiology Microbiology Date/Time Source Procedure Growth Status 09/28/24 06:33 Blood Blood Culture - Preliminary NO GROWTH AFTER 72 HOURS OF INCUBATION. Resulted Labs and/or images reviewed: Labs reviewed by me, Image(s) reviewed by me Assessment/Plan Assessment/Plan Impression: -acute hypoxic respiratory failure -probable bilateral pneumonia, Gram-positive/Gram-negative etiology -down syndrome -obesity -rule out acute systolic heart failure Plan: -no events overnight. Patient now on 4 L via nasal cannula. Overall clinical status improving. Discussed case with the patient's family was bedside. -check PSA -continue empiric antibiotic therapy -bronchodilators -O2 supplementation to keep saturation greater than 92% -repeat labs, chest x-ray in a.m. Total time spent with patient discussing and formulating plan of care: 35 minutes. This medical document was created using an electronic medical record system with [employer] dictation system. Although this document has been carefully reviewed, there may still be some phonetic and typographical errors. These areas are purely typographical due to imperfections of the software programs, and do not reflect any compromise in the patient's medical care. Plan discussed with: Patient, Other (RN) My Orders Orders - ANJALI ERIC NP Procedure Category Date Status Time Sodium Chloride 0.9% PHA 09/30/24 In Process 12:00 Psa Total+% Free LAB 10/01/24 In Process 04:00 Date of Service: Oct 01, 2024 Billing Provider: ANJALI ERIC NP Common Visit Codes: [id number] INP/OBS CARE(HIGH) ANJALI ERIC NP Oct 01, 2024 11:24
[2024-10-02] VITALS (16 sets, daily range): BP systolic 91–126; BP diastolic 50–72; PULSE 81–105; RESP 16–20; TEMP 97.5–98.7; O2SAT 91–98
[2024-10-02 06:07] LABS: PSA Free 0.02 ng/mL; Prostate Specific Antigen 0.2 ng/mL (0.0-4.0)
[2024-10-02 07:37] LABS: Hemoglobin 18.6 g/dL (13.5-17.5); Mean Corpuscular Hemoglobin 31.7 pg (28.0-32.0); Mean Corpuscular Hgb Conc. 34.4 g/dL (32.0-36.0); Mean Corpuscular Volume 92.1 fL (80.0-100.0); Platelet Count (auto) 200 10^3/uL (140-450); Red Blood Cells 5.87 10^6/uL (4.5-5.90); Red Cell Distribution Width 15.8 % (11.8-14.3); White Blood Cell 5.3 10^3/uL (4.4-10.8)
[2024-10-02 07:40] LABS: Basophils % (manual) 0 (0.0-2.0); Blast Cells 0; Eosinophils % (manual) 0 (0-7); Metamyelocytes % 0; Myelocytes % 0; Promyelocytes % 0; Reactive Lymphocytes 0
[2024-10-02 07:45] LABS: Anion Gap 9 (5-15); Chloride 102 mmol/L (98-107); Sodium 143 mmol/L (136-145)
[2024-10-02 07:46] LABS: Calcium 9.1 mg/dL (8.7-10.4)
[2024-10-02 07:47] LABS: Carbon Dioxide 32 mmol/L (20-31); Potassium 3.4 mmol/L (3.5-5.1)
[2024-10-02 07:51] LABS: BUN/Creatinine Ratio 16.4 (10.0-20.0); Blood Urea Nitrogen 11 mg/dL (9-23); Glucose 85 mg/dL (74-106)
[2024-10-02 08:20] LABS: Band Neutrophils % (manual) 3; Lymphocytes % (manual) 11 (10.0-50.0); Monocytes % (manual) 17 (0-12)
[2024-10-02 08:21] LABS: Platelet Estimate Adequate
[2024-10-02] MEDS: ACETAMINOPHEN 325 MG TAB PO PRN (09:11)
[2024-10-02] MEDS: DOCUSATE SOD 100 MG CAP PO PRN (09:11)
--- NOTE | 2024-10-02 10:27 | DVH ---
CHEST XRAY: 1 view(s) was obtained HISTORY: pna COMPARISON: XY CHEST PORTABLE on DOS: 09/28/24 FINDINGS: Hazy right infrahilar / lower level opacity. Cardiomediastinal silhouette is mildly enlarged. No acut e osseous abnormality. IMPRESSION: 1. Streaky right lower lung opacity which may represent developing pneumonia versus aspiration.
--- NOTE | 2024-10-02 11:22 | DVHPN2 ---
Subjective Patient unable to communicate. Reviewed: Care Plan, H&P, Labs, Medications Changes from previous H/P or p: No Changes General: Per HPI Eyes: No Pain, No Vision change, No Conjunctivae inflammation, No Eyelid inflammation, No Other, No Redness ENT: No Ear pain, No Ear discharge, No Nose pain, No Nose discharge, No Nose congestion, No Mouth pain, No Mouth swelling, No Throat pain, No Throat swelling, No Other Cardiovascular: No Chest Pain, No Palpitations, No Orthopnea, No Paroxysmal Noc. Dyspnea, No Edema, No Lt Headedness, No Other Respiratory: Cough; No Dry; Shortness of breath, SOB with excertion, Wheezing; No Hemoptysis, No Pleuritic Pain; Sputum; No Other Gastrointestinal: No Nausea, No Vomiting, No Abdominal Pain, No Diarrhea, No Constipation, No Melena, No Hematochezia, No Other Genitourinary: No Dysuria, No Frequency, No Incontinence, No Hematuria, No Retention, No Other Musculoskeletal: No other, No neck pain, No shoulder pain, No arm pain, No back pain, No hand pain, No leg pain, No foot pain Skin: No Rash, No Lesions, No Jaundice, No Bruising, No Other Objective Vitals Vital Signs Date Time Temp Pulse Resp B/P (MAP) Pulse Ox O2 Delivery O2 Flow Rate FiO2 10/02/24 08:34 98.4 83 19 124/72 (89) 95 98.4 10/02/24 08:00 Nasal Cannula* 4 N/A Simple Mask* Intake/Output Intake and Output 10/02/24 07:00 Intake Total 1760 ml Balance 1760 ml Intake Oral 1460 ml IV Total 300 ml # Voids 5 # Bowel Movements 2 General Appearance: Alert, Cooperative, No acute distress HEENT: Atraumatic, PERRLA Lungs: Normal air movement, Other (Wheezing, 6 L via Oxymizer) Cardiovascular: Normal S1, Normal S2 Abdomen: Normal bowel sounds, Soft, No tenderness, No hepatospenomegaly Musculoskeletal: Normal sensory function, Normal motor function Skin: Dry, Intact Psych/Mental Status: Mental status NL, Mood NL Medications Current Medications Medications Dose Ordered Sig/Shailesh Route Start Time Stop Time Status Last Admin Dose Admin Ondansetron HCl 4 mg Q4HP PRN IV 09/28/24 10:30 Docusate Sodium 100 mg BIDPRN PRN PO 09/28/24 10:30 10/02/24 09:11 100 MG Acetaminophen 650 mg Q6HP PRN PO 09/28/24 10:30 10/02/24 09:11 650 MG Ipratropium [place] 0.5 mg Q6HWA NEB 09/28/24 12:00 10/02/24 07:58 0.5 MG Albuterol 2.5 mg Q6HWA NEB 09/28/24 12:00 10/02/24 07:58 2.5 MG Enteral Nutritional Formula 4 oz TIDWM PO 10/02/24 12:00 Piperacillin Sod/ Tazobactam Sod 100 ml @ 25 mls/hr Q8HR IV 10/02/24 14:00 UNV Laboratory Results Laboratory Tests 10/02/24 06:33 Chemistry Test 10/02/24 06:33 Calcium Level 9.1 mg/dL (8.7-10.4) Urinalysis Test 09/28/24 11:19 Urine Color Yellow (Yellow) Urine Clarity Clear (Clear) Urine pH 5.5 (5.0-9.0) Urine Specific [place] 1.023 (1.001-1.035) Urine Protein 1+ (Negative) H Urine Ketones Negative (Negative) Urine Blood Negative /uL (Negative) Urine Nitrite Negative (Negative) Urine Bilirubin Negative (Negative) Urine Urobilinogen Normal mg/dL (Negative) Urine Leukocyte Esterase Negative /uL (Negative) Urine RBC <1 /hpf (0 - 3) Urine Microscopic WBC < 1 /HPF (0-3) Urine Squamous Epithelial Cells None seen /hpf (<5) Urine Bacteria None seen /hpf (None Seen) Urine Granular Casts Few /lpf (0) Urine Mucus Few (None Seen) Urine Glucose Normal mg/dL (Normal) Microbiology Microbiology Date/Time Source Procedure Growth Status 09/28/24 06:33 Blood Blood Culture - Preliminary NO GROWTH AFTER 72 HOURS OF INCUBATION. Resulted Labs and/or images reviewed: Labs reviewed by me, Image(s) reviewed by me Assessment/Plan Assessment/Plan Impression: -acute hypoxic respiratory failure -probable bilateral pneumonia, probable aspiration etiology -down syndrome -obesity -rule out acute systolic heart failure Plan: -no events overnight. Patient now on 4 L via nasal cannula. Overall clinical status improving. Discussed case with the patient's family was bedside. -repeat chest x-ray reveals right lower lobe infiltrates. Probable aspiration etiology. -stop current antibiotic therapy, changed to Zosyn. -room air ABG -bronchodilators -O2 supplementation to keep saturation greater than 92% Total time spent with patient discussing and formulating plan of care: 35 minutes. This medical document was created using an electronic medical record system with [employer] dictation system. Although this document has been carefully reviewed, there may still be some phonetic and typographical errors. These areas are purely typographical due to imperfections of the software programs, and do not reflect any compromise in the patient's medical care. Plan discussed with: Patient, Other (RN) My Orders Orders - ANJALI ERIC NP Procedure Category Date Status Time Chest Xray 1 View XY 10/02/24 Resulted 04:00 Bed Rest With Hob At [place] 10/01/24 In Process 30-45 Deg 11:21 Abg W/ Co-Ox RT 10/02/24 Logged 11:03 Nutritional PHA 10/02/24 In Process Supplements (Ensure 12:00 Basic Metabolic Panel LAB 10/03/24 Verified 04:00 Piperacillin-Tazob PHA 10/02/24 Logged 3.375gm (Zosyn 3.375g 14:00 Potassium Chloride PHA 10/02/24 In Process (Potassium Chloride). 11:15 Date of Service: Oct 02, 2024 Billing Provider: ANJALI ERIC NP Common Visit Codes: [id number] INP/OBS CARE(HIGH) ANJALI ERIC NP Oct 02, 2024 11:22
[2024-10-02] MEDS: Ensure Pudding Vanilla 4 oz Cup PO SCH (12:00)
[2024-10-02 12:42] LABS: Base Excess 8.4 mmol/L (-2.0-3.0)
[2024-10-02] MEDS: PIPERACILLIN-TAZOB 3.375GM 100 ML IV SCH (13:48)
[2024-10-02] MEDS: HYDROcodone-ACET 5/325MG TAB PO PRN (14:56)
[2024-10-02] MEDS: POTASSIUM CHLORIDE 40 MEQ, LIDOCAINE 1% (LOCAL ANESTH.) 4 ML in SODIUM CHL 0.9% 250 ML IV ONE (16:06)
--- NOTE | 2024-10-02 17:33 | DVH ---
Date: 10/02/2024 04:22 PM Examination: XY KUB ABDOMEN SINGLE VIEW History: abdominal pain Comparison: None TECHNIQUE: Frontal views of the abdomen was obtained. FINDINGS: Bowel gas pattern is unremarkable. The lung bases are unremarkable. No acute osseous abnormality identified. IMPRESSION: 1. Nonobstructive bowel gas pattern. 2. Stool throughout the colon HS:Y
[2024-10-03] VITALS (14 sets, daily range): BP systolic 81–132; BP diastolic 46–70; PULSE 81–97; RESP 14–20; TEMP 97.9–98.4; O2SAT 90–100
[2024-10-03 06:51] LABS: Anion Gap 8 (5-15); Carbon Dioxide 31 mmol/L (20-31); Chloride 103 mmol/L (98-107); Potassium 3.7 mmol/L (3.5-5.1); Sodium 142 mmol/L (136-145)
[2024-10-03 06:57] LABS: Glucose 88 mg/dL (74-106)
[2024-10-03 06:58] LABS: BUN/Creatinine Ratio 14.3 (10.0-20.0); Blood Urea Nitrogen 10 mg/dL (9-23)
--- NOTE | 2024-10-03 11:26 | DVHDS2 ---
Discharge Summary Date of Admission Sep 28, 2024 at 10:28 Date of Discharge: Oct 03, 2024 Admitting Diagnosis Acute hypoxic respiratory failure Labs/Diagnostic Data: Laboratory Results Test 10/03/24 05:01 10/02/24 12:37 10/02/24 06:33 10/01/24 07:27 Sodium Level 142 mmol/L (136-145) Potassium Level 3.7 mmol/L (3.5-5.1) Chloride Level 103 mmol/L (98-107) Carbon Dioxide Level 31 mmol/L (20-31) Anion Gap 8 (5-15) Blood Urea Nitrogen 10 mg/dL (9-23) Creatinine 0.70 mg/dL (0.700-1.30) Glomerular Filtration Rate Calc 109 mL/min (>90) BUN/Creatinine Ratio 14.3 (10.0-20.0) Serum Glucose 88 mg/dL (74-106) Calcium Level 9.0 mg/dL (8.7-10.4) Blood Gas Specimen Type Arterial Blood Gas Sample Site Right radial Blood Gas Patient Temperature 37.0 Arterial Blood Date Drawn [id number] Arterial Blood pH 7.471 (7.350-7.450) Arterial Blood Partial Pressure CO2 47.5 mmHg (35.0-48.0) Arterial Blood Partial Pressure O2 49.2 mmHg (83.0-108.0) Arterial Blood HCO3 33.9 mmol/L (21.0-28.0) Arterial Blood Oxygen Saturation 85.1 % (94.0-98.0) Arterial Blood Base Excess 8.4 mmol/L (-2.0-3.0) Arterial Blood Oxyhemoglobin 84.3 % (94.0-98.0) Arterial Blood Carboxyhemoglobin 0.2 % (0.5-1.5) Arterial Blood Methemoglobin 0.7 % (0.0-1.5) Satnam Test Yes Blood Gas Total Hemoglobin 19.60 g/dL (13.5-17.5) Blood Gas Liter Flow 0.00 Blood Gas Modality Room air FiO2 % 21.0 Blood Gas Critical Value Read Back Yes Blood Gas Notified Whom Christian cast Blood Gas Notified Time [id number] Blood Gas Notified By Mihaela el White Blood Count 5.3 10^3/uL (4.4-10.8) Red Blood Count 5.87 10^6/uL (4.5-5.90) Hemoglobin 18.6 g/dL (13.5-17.5) Hematocrit 54.0 % (41.0-53.0) Mean Corpuscular Volume 92.1 fL (80.0-100.0) Mean Corpuscular Hemoglobin 31.7 pg (28.0-32.0) Mean Corpuscular Hemoglobin Concent 34.4 g/dL (32.0-36.0) Red Cell Distribution Width 15.8 % (11.8-14.3) Platelet Count 200 10^3/uL (140-450) Mean Platelet Volume 8.4 fL (6.9-10.8) Neutrophils (%) (Auto) % (37.0-80.0) Lymphocytes (%) (Auto) % (10.0-50.0) Monocytes (%) (Auto) % (0.0-12.0) Basophils (%) (Auto) % (0.0-2.0) Neutrophils # (Auto) 10 ^3/uL (1.6-8.6) Lymphocytes # (Auto) 10 ^3/uL (0.4-5.4) Monocytes # (Auto) 10 ^3/uL (0-1.3) Differential Total Cells Counted 100.0 (100) Neutrophils % (Manual) 69 (37.0-80.0) Band Neutrophils % (Manual) 3 Lymphocytes % (Manual) 11 (10.0-50.0) Monocytes % (Manual) 17 (0-12) Eosinophils % (Manual) 0 (0-7) Basophils % (Manual) 0 (0.0-2.0) Metamyelocytes % (manual) 0 Myelocytes % (Manual) 0 Promyelocytes % (Manual) 0 Blast Cells % (Manual) 0 Reactive Lymphocytes 0 Platelet Estimate Adequate Eosinophils (%) (Auto) 0.0 % (0.0-7.0) Eosinophils # (Auto) 0 10 ^3/uL (0-0.8) Basophils # (Auto) 0 10 ^3/uL (0-0.2) Nucleated Red Blood Cells 0.0 % Total Bilirubin 0.5 mg/dL (0.2-1.0) Aspartate Amino Transferase (AST) 31 U/L (<34) Alanine Aminotransferase (ALT) 47 U/L (7-40) Alkaline Phosphatase 43 U/L (46-116) Total Protein 6.5 g/dL (5.7-8.2) Albumin 3.5 g/dL (3.2-4.8) Free Prostate Specific Antigen 0.02 ng/mL (N/A) Percent Free Prostate Specific Ag 10.0 % (.) Prostate Specific Antigen Total 0.2 ng/mL (0.0-4.0) Test 09/28/24 11:19 09/28/24 09:27 09/28/24 08:45 Urine Color Yellow (Yellow) Urine Clarity Clear (Clear) Urine pH 5.5 (5.0-9.0) Urine Specific [place] 1.023 (1.001-1.035) Urine Protein 1+ (Negative) Urine Ketones Negative (Negative) Urine Blood Negative /uL (Negative) Urine Nitrite Negative (Negative) Urine Bilirubin Negative (Negative) Urine Urobilinogen Normal mg/dL (Negative) Urine Leukocyte Esterase Negative /uL (Negative) Urine RBC <1 /hpf (0 - 3) Urine Microscopic WBC < 1 /HPF (0-3) Urine Squamous Epithelial Cells None seen /hpf (<5) Urine Bacteria None seen /hpf (None Seen) Urine Granular Casts Few /lpf (0) Urine Mucus Few (None Seen) Urine Glucose Normal mg/dL (Normal) Troponin I High Sensitivity 7 ng/L (</=54) Lactic Acid Level 2.9 mmol/L (0.4-2.0) Other Laboratory Tests 10/03/24 05:01 10/02/24 06:33 Brief Hx & Hospital Course: History of Present Illness Smith Watson is a 54-year-old male with a past medical history of Down's syndrome and non-verbal at baseline, who was brought to the hospital for shortness of breath. Per his sister, he lives in [place], he is only visiting right now. At baseline is oxygenation is around 85%, and he does not use home oxygen. He does not have any chronic conditions that require daily medications. He has had pneumonia in the past. She states she brought him in because he was having increased work of breathing, and cough with sputum. She states she can hear he has a wet cough, but he has difficulty coughing it up. In the ER [facility] patient was placed on a non rebreather mask at 15L. O2 saturations were 96%, wean down oxygen as tolerated. Course of hospitalization: Patient was weaned down to [address]. [address] CT reveals bilateral pneumonia. Given his high probability of aspiration, antibiotic therapy was switched to Zosyn. Patient's respiratory status improved. He is now ambulating with his sister. Patient did report having abdominal pain, with KUB revealing stool burden. Laxatives were prescribed. Patient will be discharged home on continue antibiotic therapy with Augmentin 875 mg p.o. b.i.d. for additional seven days. He will be discharged with oxygen at 2 L/min. Patient's sister is agreeable with discharge plan. All questions answered. Physical examination General: Alert and Oriented x3. No acute distress. Well-nourished. Eyes: EOMI. Anicteric. HENT: Moist mucous membranes. Lungs: Clear to auscultation bilaterally. No accessory muscle use. Cardiovascular: Regular rate and rhythm. No murmur. No JVD. Abdomen: Soft, non-tender and non-distended. No palpable masses. Extremities: No edema. Non-tender. Skin: No rashes or lesions. Warm. Neurologic: No focal neurological deficits. CN II-XII grossly intact, but not individually tested. Psychiatric: Cooperative. Appropriate mood and affect. Total time spent with patient discussing and formulating plan of care: 35 minutes. This medical document was created using an electronic medical record system with [employer] dictation system. Although this document has been carefully reviewed, there may still be some phonetic and typographical errors. These areas are purely typographical due to imperfections of the software programs, and do not reflect any compromise in the patient's medical care. Condition at Discharge: Fair Final Diagnosis/Problems List Acute hypoxic respiratory failure Secondary diagnosis: -acute hypoxic respiratory failure -probable bilateral pneumonia, probable aspiration etiology -down syndrome -obesity -ruled out acute systolic heart failure Discharge Disposition: Home Discharge Instruct/Medications Diet: Regular Activity: No Restrictions, As Tolerated Follow Up/Referral: Discharge Clinic in one week Medications: Augmentin 875 mg p.o. b.i.d. x7 days 36 Discharge Statement: "Patient was advised to return to the ER or call 911 if any headaches, dizziness, shortness of breath, chest pain, abdominal pain, bleeding, fevers, or worsening of medical condition. Patient was counseled about treatment plan, medications, possible side effects, patientverbalized understanding. All questions were answered to the best of my ability. This discharge took greater then 30 minutes in planning, reviewing documentation, counseling the patient, and discussing with other team members." ASSESSMENT ASSESSMENT Assessment Acute hypoxic respiratory failure Date of Service: Oct 03, 2024 Billing Provider: ANJALI ERIC NP Common Visit Codes: [id number] DISCH DAY >30min ANJALI ERIC NP Oct 03, 2024 11:26
[2024-10-03] MEDS ORDERED: DOCU-94 PO (11:27)
[2024-10-03] MEDS ORDERED: AUG875T PO (11:27)
[2024-10-03] MEDS: LACTULOSE 20Gm/30ML SOLN PO ONE (11:42)
== END 2024-10-03 19:30 | disposition home or self-care (01) | DRG 720 ==
LOC: ER 05:12 → OVERFLOW 10:28 → CENTRAL 09-30 01:12
PROVIDERS: ADMIT Nurse Practitioner Acute Care; ATTEND Nurse Practitioner Acute Care
DX: A41.9 Sepsis, unspecified organism (principal); J96.01 Acute respiratory failure with hypoxia; J69.0 Pneumonitis due to inhalation of food and vomit; I51.7 Cardiomegaly; E66.9 Obesity, unspecified; Z68.32 Body mass index [BMI] 32.0-32.9, adult; Q90.9 Down syndrome, unspecified; Z87.01 Personal history of pneumonia (recurrent); Z90.49 Acquired absence of other specified parts of digestive tract
CPT/HCPCS: 31720; 36415; 36600; 71045; 71250; 74018; 80048; 80053; 81001; 82805; 83605; 84154; 84484; 85007; 85025; 85027; 87040; 93005; 94640; 96365; 99291; G0378; J0692; J2003; J2543